=== PATIENT | male | born 1955 | race Caucasian/White ===

== ENCOUNTER 2019-08-28 10:27 | Emergency (ER) | payer MEDICARE, SELFPAY | END 2019-08-28 12:50 | disposition home or self-care (01) | PROVIDERS: Emergency Provider Nurse Practitioner Family; Visit Provider Nurse Practitioner Family | DX: K57.33 Diverticulitis of large intestine without perforation or abscess with bleeding (principal); I10 Essential (primary) hypertension; Z79.82 Long term (current) use of aspirin | CPT/HCPCS: 74177; 80053; 81003; 83605; 83690; 85025; 96361; 96374; 96375; 99284; J1885; J2405; Q9967 ==

== ENCOUNTER 2020-07-18 11:24 | Outpatient (CLI) | payer MEDICARE, SELFPAY ==
--- NOTE | 2020-07-18 11:45 | XR_ITS ---
WS: [id number] Exam: XR KUB [id number] Date/Time of Exam: 07/18/2020 11:35 AM Reason For Exam: stones Comparison 10/27/2018. A total of 3 small calcification superimpose the right renal silhouette and may represent renal calcu li. No calcifications are visualized over the left kidney. There are nonspecific bilateral pelvic urszula cifications noted. Organ margins are intact. No bowel obstruction or free air. Postoperative changes seen along the right and left pubis. XR/XR KUB [id number] IMPRESSION: 1. Small calcifications superimposing the right renal silhouette which may repr esent renal calculi. 2. Nonspecific bilateral pelvic calcifications. 3. No acute finding.
== END 2020-07-18 11:25 | disposition home or self-care (01) ==
LOC: RAD 11:30
PROVIDERS: PCP Urology; Visit Provider Urology
DX: N20.0 Calculus of kidney (principal); C61 Malignant neoplasm of prostate; R39.9 Unspecified symptoms and signs involving the genitourinary system
CPT/HCPCS: 74018; 81003; 84153

== ENCOUNTER 2021-07-16 09:16 | Outpatient (CLI) | payer MEDICARE, SELFPAY ==
--- NOTE | 2021-07-16 09:00 | XR_ITS ---
WS: [id number] Exam: XR KUB [id number] Date/Time of Exam: 07/16/2021 9:00 AM Reason For Exam: RENAL CALCULUS Comparison 07/18/2020. No bowel obstruction or free air. Small calcification superimpose both renal silhouettes and are like ly renal stones. No sign of organ enlargement. Regional bony elements are intact. Postoperative grande es seen in the region of the pubic symphysis. XR/XR KUB [id number] IMPRESSION: 1. Small calcification superimpose both kidneys and are probably renal calculi. 2. Nonspecific bilateral pelvic calcifications. 3. No acute abdominal finding.
== END 2021-07-16 09:17 | disposition home or self-care (01) ==
PROVIDERS: PCP Nurse Practitioner Family; Visit Provider Urology
DX: N20.0 Calculus of kidney (principal)
CPT/HCPCS: 74018; 81003; G0103

== ENCOUNTER 2021-08-13 18:49 | Emergency (ER) | payer MEDICARE, SELFPAY ==
[2021-08-13 18:58] VITALS: BP 124/77; PULSE 67; RESP 18; TEMP 36.6; O2SAT 91; BMI 28.1
--- NOTE | 2021-08-13 19:14 | CTR_ITS ---
PROCEDURE INFORMATION: Exam: CT Abdomen And Pelvis With Contrast Exam date and time: 08/13/2021 7:14 PM Age: 66 years old Clinical indication: Nausea; Abdominal pain; Localized; Right lower quadrant (rlq); Prior surgery; Surgery type: Hernia, ureteral stents; Additional info: Flank pain TECHNIQUE: Imaging protocol: Computed tomography of the abdomen and pelvis with contrast. Radiation optimization: All CT scans at this facility use at least one of these dose optimization techniques: automated exposure control; mA and/or kV adjustment per patient size (includes targeted exams where dose is matched to clinical indication); or iterative reconstruction. Contrast material: VISI 320; Contrast volume: 95 ml; Contrast route: INTRAVENOUS (IV); COMPARISON: CT abdomen pelvis w con* [id number] 08/28/2019 11:39 AM RADIATION DOSE METRICS: Total DLP (mGy-cm): 1624.78 FINDINGS: Lungs: Bibasilar atelectasis versus infiltrate. Liver: Hepatic cysts. Gallbladder and bile ducts: Normal. No calcified stones. No ductal dilation. Pancreas: Normal. No ductal dilation. Spleen: Normal. No splenomegaly. Adrenal glands: Normal. No mass. Kidneys and ureters: Right mid ureter 5.1 mm calculus with moderate hydronephrosis and hydroureter along with some perinephric edema perhaps reflecting associated pyelonephritis. Bilateral renal cysts, negative for follow-up advised. Several bilateral punctate nonobstructing renal calyceal stones. Stomach and bowel: Diverticulosis without diverticulitis. Appendix: No evidence of appendicitis. Intraperitoneal space: Unremarkable. No free air. No significant fluid collection. Vasculature: Unremarkable. No abdominal aortic aneurysm. Lymph nodes: Unremarkable. No enlarged lymph nodes. Urinary bladder: Unremarkable as visualized. Reproductive: Unremarkable as visualized. Bones/joints: Unremarkable. No acute fracture. Soft tissues: Right inguinal hernia containing omentum without bowel. CT/CT abdomen pelvis w con* [id number] IMPRESSION: 1. Right mid ureter 5.1 mm calculus with moderate hydronephrosis and hydroureter along with some perinephric edema perhaps reflecting associated pyelonephritis. 2. Diverticulosis without diverticulitis. 3. Right inguinal hernia containing omentum without bowel. 4. Bibasilar atelectasis versus infiltrate. 5. Hepatic cysts. 6. Bilateral renal cysts, negative for follow-up advised. 7. Several bilateral punctate nonobstructing renal calyceal stones.
[2021-08-13 19:31] LABS: Glucose Urine UA Norm (Normal); Ketones Urine 1+ (Negative); Protein Urine 2+ (Negative); Specific Gravity, Urine 1.025 (1.005-1.030); Urine Appearance Cloudy (CLEAR); Urine Color Red (Yellow); pH Urine 6.5 (5-7)
[2021-08-13 19:32] LABS: Bilirubin Urine 1+ (Negative); Blood Urine 3+ (Negative); Nitrate Urine Negative (Negative); Urobilinogen Urine 4 mg/dL (Negative)
[2021-08-13 19:33] LABS: Add Urine Microscopic? YES; Bacteria Urine 2+ /hpf; Leukocyte Esterase Urine 1+ (Negative); Mucus Urine TRACE /hpf; RBC Urine TOO NUMEROUS TO CNT /hpf (0-2); Squamous Epithelial Cell Urine 0-4 /hpf (0-5)
[2021-08-13 19:34] LABS: Add Urine Culture? Yes
[2021-08-13] MEDS: acetaminophen 500 mg Tablet PO (19:35)
--- NOTE | 2021-08-13 19:37 | W.ED.GENADLT ---
HPI - General Adult General: Chief complaint: Abdominal Pain Stated complaint: possible Kidney stone Time Seen by Provider: 08/13/21 19:14 History of Present Illness: HPI narrative: Patient is a 66-year-old male with history of hypertension, bilateral inguinal hernia, recurrent kidney stones, prostate cancer presenting to the emergency room with complaints of acute onset 6/10 right-sided flank pain x1 hour patient says that the pain is very similar to prior history of kidney stones. Patient has intermittent colicky-like pain. Denies any fever/chills, nausea/vomiting, urinary symptoms, hematuria or polyuria. Patient has problems stooling. Pain is not worse with p.o. intake. Patient denies any diarrhea, melena hematochezia. No associated chest pain, shortness breath, palpitation, lightheadedness at this time Onset: 1 hr ago Duration:1 hr Location:home Severity:moderate Review of Systems Narrative: Constitutional: No fever, no chills. HEENT: No vision changes CV: No chest pain, no palpitations PULM: no cough, no dyspnea. GI: No abdominal pain, no N/V/D. +R sided flank pain : No dysuria MSKEL: No muscle pain SKIN: No new rashes, no lesions. NEURO: No headache, no focal weakness. HEME: No visible bruises PSYCH: Normal mood PFSH ED PFSH: Medical History (Updated 08/13/21 @ 22:20 by Bianca Rao MD) Erectile dysfunction Lower urinary tract symptoms (LUTS) Prostate cancer Renal calculus Surgical History (Updated 07/24/21 @ 12:57 by Les Gilmore MD) H/O hernia repair S/P extracorporeal shock wave therapy S/P ureteral stent placement Family History Mother , at age 90 No problems noted. Father , in his 60's MVA (motor vehicle accident) Brother Cancer prostate cancer 2 brothers Social History Smoking and tobacco status: former smoker Alcohol intake: current Alcohol intake frequency: holidays/special occasions only Marital status: Current occupational status: disabled Physical Exam Narrative: EXAM NARRATIVE: Head: Atraumatic Eyes: PERRL, conjunctiva without injection ENT: Mucous membrane moist NECK: Supple, ROM intact LUNGS: LCTAB, no crackles/rhonchi CV: RRR ABDOMEN: Soft, +moderate R flank TTP. NO guarding rebound, guarding, rigidity. No CVA tenderness to percussion. Neg Segal/Neg McBurney's point tenderness, no suprabupic tenderness to palpation. EXTREMITY: Normal ROM SKIN: No rash or erythema NEURO: Awake and alert, no focal motor deficits PSYCH: Normal mood and affect Course Vital Signs: Vital signs: Vital Signs Temperature 97.9 F 08/13/21 18:58 Pulse Rate 67 08/13/21 18:58 Respiratory Rate 24 H 08/13/21 20:14 Blood Pressure 124/77 08/13/21 18:58 Pulse Oximetry 95 08/13/21 20:14 MDM - General Adult MDM Narrative: Medical decision making narrative: 66-year-old male with history of recurrent kidney stones presenting to the emergency room with sudden onset right flank/lower quadrant pain x1 hour. On exam, patient has moderate tenderness palpation the right lower quadrant. Patient is afebrile. No guarding no rebound tenderness White count of 9.2. UA is consistent with UTI. Patient does appear to have 2+ bacteria and 5-10 WBCs per high-power field and 2+ leukocyte esterase. CT abdomen pelvis showed right-sided kidney stone with hydroureter. Patient has a 5.1 mm stone with moderate hydronephrosis. There appears to be perinephric edema noted. Have discussed finding with Dr. Gilmore at 10:15 PM. Given the fact that patients develop acute pain, is afebrile, has no white count, creatinine within normal limit, this is unlikely to be acute infected stone. To be safe, have given patient first dose of ceftriaxone in the emergency room. Patient is aware that he has an appoint with Dr. Gilmore tomorrow morning. I have given patient Dr. Gilmore's clinic's address and phone number. He received morphine, Toradol, Dilaudid with improvement in pain symptoms. Rx cefdinir BID x 5 days, perococet PRN pain, flomax per request of family. Disposition: Discharge. Patient counseled regarding diagnostic impression, treatment plan. Patient given ED strict return precautions to return for continuation, worsening, or development of new symptoms. Instructed to f/u w/ Dr. Gilmore regarding symptoms today. Patient verbalized understanding. Patient is given return precaution for any signs of infection including fever/chills, worsening flank pain, dehydration, inability tolerate p.o., or any new concerning complaints. Lab Data: Labs: Lab Results 08/13/21 08/13/21 08/13/21 19:03 19:35 19:35 WBC 9.2 10^3/uL 10^3/ uL (4.0-10.0) RBC 4.71 10^6/uL 10^6 /uL (4.1-5.3) Hgb 15.3 g/dL g/dL (11.7-16.6) Hct 45.5 % % (42.0-52.0) MCV 96.6 fl H fl (80-94) MCH 32.5 pg pg (28.0-34.0) MCHC 33.6 g/dL g/dL (30.0-36.0) RDW 12.9 % % (12.1-15.1) Plt Count 225 10^3/cmm 10^3 /cmm (130-400) MPV 10.5 fL H fL (7.4-10.4) Neut % (Auto) 68.6 % % Lymph % (Auto) 22.7 % % [place] % (Auto) 6.2 % % Eos % (Auto) 1.9 % % Baso % (Auto) 0.4 % % Neut # (Auto) 6.30 10^3/uL 10^3 /uL (1.8-7.7) Lymph # (Auto) 2.1 10^3/uL 10^3/ uL (0.8-4.8) [place] # (Auto) 0.6 10^3/uL 10^3/ uL (0.2-0.9) Eos # (Auto) 0.2 10^3/uL 10^3/ uL (0.0-0.8) Baso # (Auto) 0.0 10^3/uL 10^3/ uL (0.0-0.1) Nucleated RBC % (a uto) 0 % % Nucleated RBCs # 0.0 /100WBC /100W BC Sodium 141 mmol/L mmol/L (136-145) Potassium 3.8 mmol/L mmol/L (3.5-5.1) Chloride 105 mmol/L mmol/L (98-107) Carbon Dioxide 20 mmol/L L mmol/ L (22-29) Anion Gap 19.8 H (5-19) BUN 13 mg/dL mg/dL (8-23) Creatinine 1.1 mg/dL mg/dL (0.7-1.2) GFR Calculation 67.0 mL/min L mL/ min (90-130) Glucose 110 mg/dL mg/dL (65-115) Calculated Osmolal ity 293 mOsm/kg mOsm/ kg (285-295) Calcium 8.2 mg/dL L mg/dL (8.5-10.5) Total Bilirubin 0.3 mg/dL mg/dL (0.15-1.2) AST 24 U/L U/L (0-40) ALT 19 U/L U/L (0-41) Alkaline Phosphata se 69 IU/L IU/L (40-130) Total Protein 6.1 g/dL L g/dL (6.6-8.7) Albumin 4.1 g/dL g/dL (3.5-5.2) Globulin 2.0 g/dL g/dL (1.3-4.6) Lipase 27 U/L U/L (13-60) Urine Color Red (Yellow) Urine Appearance Cloudy (CLEAR) Urine pH 6.5 (5-7) Ur Specific Gravit y 1.025 (1.005-1.030) Urine Protein 2+ H (Negative) Urine Glucose (UA) Norm (Normal) Urine Ketones 1+ H (Negative) Urine Blood 3+ H (Negative) Urine Nitrate Negative (Negative) Urine Bilirubin 1+ H (Negative) Urine Urobilinogen 4 mg/dL H mg/dL (Negative) Ur Leukocyte Yesika ase 1+ H (Negative) Urine RBC Too numerous to c nt /hpf H /hpf (0-2) Urine WBC 5-10 /hpf H /hpf (0-5) Ur Squamous Epith Cells 0-4 /hpf H /hpf (0-5) Amorphous Sediment Not Reportable Urine Bacteria 2+ /hpf H /hpf (NONE) Urine Mucus Trace /hpf /hpf Urine Yeast 2+ /hpf H /hpf Imaging Data^: Other Imaging: Radiologist's impression: [id number] [id number] Scan ReportSigned Patient: Asim Muse #: [id number]: 5Acct#:[id number]/Sex: 66 / MADM Date: 08/13/21Loc: ERRoom/Bed:Attending Dr: Ordering Provider/Ordering MD: Bianca Rao MD Date of Service: 08/13/21 Procedure(s): CT abdomen pelvis w con* [id number] Accession Number(s): [id number] Report Number: [id number] PROCEDURE INFORMATION: Exam: CT Abdomen And Pelvis With Contrast Exam date and time: 08/13/2021 7:14 PM Age: 66 years old Clinical indication: Nausea; Abdominal pain; Localized; Right lower quadrant (rlq); Prior surgery; Surgery type: Hernia, ureteral stents; Additional info: Flank pain TECHNIQUE: Imaging protocol: Computed tomography of the abdomen and pelvis with contrast. Radiation optimization: All CT scans at this facility use at least one of these dose optimization techniques: automated exposure control; mA and/or kV adjustment per patient size (includes targeted exams where dose is matched to clinical indication); or iterative reconstruction. Contrast material: VISI 320; Contrast volume: 95 ml; Contrast route: INTRAVENOUS (IV); COMPARISON: CT abdomen pelvis w con* [id number] 08/28/2019 11:39 AM RADIATION DOSE METRICS: Total DLP (mGy-cm): 1624.78 FINDINGS: Lungs: Bibasilar atelectasis versus infiltrate. Liver: Hepatic cysts. Gallbladder and bile ducts: Normal. No calcified stones. No ductal dilation. Pancreas: Normal. No ductal dilation. Spleen: Normal. No splenomegaly. Adrenal glands: Normal. No mass. Kidneys and ureters: Right mid ureter 5.1 mm calculus with moderate hydronephrosis and hydroureter along with some perinephric edema perhaps reflecting associated pyelonephritis. Bilateral renal cysts, negative for follow-up advised. Several bilateral punctate nonobstructing renal calyceal stones. Stomach and bowel: Diverticulosis without diverticulitis. Appendix: No evidence of appendicitis. Intraperitoneal space: Unremarkable. No free air. No significant fluid collection. Vasculature: Unremarkable. No abdominal aortic aneurysm. Lymph nodes: Unremarkable. No enlarged lymph nodes. Urinary bladder: Unremarkable as visualized. Reproductive: Unremarkable as visualized. Bones/joints: Unremarkable. No acute fracture. Soft tissues: Right inguinal hernia containing omentum without bowel. CT/CT abdomen pelvis w con* [id number] IMPRESSION: 1. Right mid ureter 5.1 mm calculus with moderate hydronephrosis and hydroureter along with some perinephric edema perhaps reflecting associated pyelonephritis. 2. Diverticulosis without diverticulitis. 3. Right inguinal hernia containing omentum without bowel. 4. Bibasilar atelectasis versus infiltrate. 5. Hepatic cysts. 6. Bilateral renal cysts, negative for follow-up advised. 7. Several bilateral punctate nonobstructing renal calyceal stones. Dictated By:Calvin Miller MDSigned By:Calvin Miller MDSigned Date/Time:08/13/212206DD/ 13 Discharge Plan Discharge Patient Disposition: Home Clinical Impression: Acute flank pain, Renal colic Condition: Stable Prescriptions: New Percocet 5-325 mg tablet 1 tab PO Q8H PRN (Reason: pain) Qty: 10 RF: 0 cefdinir 300 mg capsule 300 mg PO BID 5 Days Qty: 10 RF: 0 Flomax 0.4 mg capsule 0.4 mg PO Q24H Qty: 10 RF: 0 No Action tamsulosin [Flomax] 0.4 mg capsule 0.4 mg PO DAILY RF: 0 losartan [Cozaar] 50 mg tablet 50 mg PO DAILY RF: 0 lovastatin 10 mg tablet 10 mg PO DAILY RF: 0 aspirin [Adult Aspirin Regimen] 81 mg tablet,delayed release (DR/EC) 81 mg PO DAILY RF: 0 Discharge Orders: Discharge ED (Routine); Ordered 08/13/21 Ordered By: Bianca Rao Referrals: Salina Shea FNP [Primary Care Provider] - Discharge Diet: Advance as tolerated Discharge Activity: Resume usual activity Patient Instructions: Renal Colic (ED), Abdominal Pain (ED), Flank Pain (ED), Opioid Safety (ED) Activity Restrictions/Additional Instructions: Please come back if you have any worsening abdominal pain, fever or chills, nausea or vomiting, diarrhea, worsening flank pain, blood in the stool, inability hold down liquid or solids, or any new concerning complaints. Please call Dr. Gilmore's office tomorrow morning for follow-up with your kidney stone at [address] [facility] [address] ? Take antibiotics as instructed. Please come back to the emergency room you have any fever or chills, worsening pain, nausea/vomiting or any new or concerning complaints. Watch out for signs of skin changes/redness, mouth redeness or swelling, nausea/vomiting, diarrhea, blood in the urine when you are taking your antibiotics. Coding Level of Care Code ED Bulk Plant Manager for Alicja Glass
[2021-08-13] MEDS: sodium chloride 0.9% 500 ML 999 ML IV (19:40)
[2021-08-13] MEDS: sodium chloride 0.9% 1,000 ML 999 ML IV (19:40)
[2021-08-13 19:56] VITALS: RESP 22; O2SAT 94
[2021-08-13] MEDS: morphine 4 mg/mL SDV 1 mL 2 MG IVP (19:56)
[2021-08-13 20:14] VITALS: RESP 24; O2SAT 95
[2021-08-13] MEDS: HYDROmorphone 1 mg/mL INJ 1 mL 0.5 MG IVP (20:14)
[2021-08-13 20:29] LABS: Basophils % 0.4 %; Eosinophils # 0.2 10^3/uL (0.0-0.8); Eosinophils % 1.9 %; Hematocrit 45.5 % (42.0-52.0); Hemoglobin 15.3 g/dL (11.7-16.6); Lymphocytes # 2.1 10^3/uL (0.8-4.8); Lymphocytes % 22.7 %; Mean Corpuscular HGB Conc 33.6 g/dL (30.0-36.0); Mean Corpuscular Hemoglobin 32.5 pg (28.0-34.0); Mean Corpuscular Volume 96.6 fl (80-94); Mean Platelet Volume 10.5 fL (7.4-10.4); Monocytes # 0.6 10^3/uL (0.2-0.9); Monocytes % 6.2 %; Neutrophils % 68.6 %; Nucleated Red Blood Cells % 0 %; Platelet Count 225 10^3/cmm (130-400); Red Blood Count 4.71 10^6/uL (4.1-5.3); Red Cell Distribution Width 12.9 % (12.1-15.1); White Blood Count 9.2 10^3/uL (4.0-10.0)
[2021-08-13 20:47] LABS: Alanine Aminotransferase 19 U/L (0-41); Albumin Level 4.1 g/dL (3.5-5.2); Alkaline Phosphatase 69 IU/L (40-130); Anion Gap 19.8 (5-19); Aspartate Amino Transferase 24 U/L (0-40); Blood Urea Nitrogen 13 mg/dL (8-23); Calcium 8.2 mg/dL (8.5-10.5); Carbon Dioxide 20 mmol/L (22-29); Chloride 105 mmol/L (98-107); Glucose 110 mg/dL (65-115); Lipase 27 U/L (13-60); Osmolality Calculated 293 mOsm/kg (285-295); Potassium 3.8 mmol/L (3.5-5.1); Sodium 141 mmol/L (136-145); Total Bilirubin 0.3 mg/dL (0.15-1.2); Total Protein 6.1 g/dL (6.6-8.7)
[2021-08-13] MEDS: iodixanol 320 mg/mL 100mL Btl IV (20:55)
[2021-08-13] MEDS: ketorolac 30 mg/mL INJ IVP (21:26)
[2021-08-13] MEDS: cefTRIAXone 1,000 MG in sodium chloride 0.9% (plus) 50 ML 100 MG IV (21:26)
[2021-08-13 22:03] VITALS: BP 127/72; RESP 20; O2SAT 93
[2021-08-13 22:42] VITALS: BP 127/72; O2SAT 93
--- NOTE | 2021-08-15 12:56 | DCPLANNER ---
manager beverage had message to refer patient to see Dr. Gilmore on 08.14.21 - an appointment had been scheduled for patient for 08.14.21 - patient did attend appointment.
== END 2021-08-13 22:30 | disposition home or self-care (01) ==
PROVIDERS: Nurse Practitioner Family; Emergency Provider Emergency Medicine; PCP Nurse Practitioner Family
DX: N23 Unspecified renal colic (principal); Z79.82 Long term (current) use of aspirin; Z85.46 Personal history of malignant neoplasm of prostate; Z87.442 Personal history of urinary calculi; Z87.891 Personal history of nicotine dependence
CPT/HCPCS: 74177; 80053; 81001; 83690; 85025; 87086; 96361; 96365; 96375; 99284; J0696; J1170; J1885; J2270; J7030; J7040; Q9967

== ENCOUNTER 2021-08-14 12:44 | Outpatient (CLI) | payer MEDICARE, SELFPAY ==
--- NOTE | 2021-08-14 12:49 | XRR_ITS ---
PROCEDURE INFORMATION: Exam: XR Abdomen Exam date and time: 08/14/2021 12:49 PM Age: 66 years old Clinical indication: Right lower quadrant abdominal pain. Prior hernia surgery. Stones. TECHNIQUE: Imaging protocol: XR of the abdomen. Views: Frontal supine view of the abdomen. 1 View. COMPARISON: CT abdomen pelvis w con* [id number] 08/13/2021 8:54 PM FINDINGS: Gastrointestinal tract: Nonobstructive bowel gas pattern. Intraperitoneal space: No gross free air. Organs: Nonobstructive renal stones are noted bilaterally. An obstructive stone identified in the mid right ureter on the prior CT from yesterday is likely situated superior to the right transverse process of L5. This stone measures 5.8 mm. Probable fiducial markers in the prostate. There is excreted contrast in the bladder. Bones/joints: No gross acute fracture. XR/XR KUB [id number] IMPRESSION: Nonobstructive renal stones are noted bilaterally. An obstructive stone identified in the mid right ureter on the prior CT from yesterday is likely situated superior to the right transverse process of L5. This stone measures 5.8 mm.
== END 2021-08-14 12:45 | disposition home or self-care (01) ==
LOC: RAD 12:47
PROVIDERS: PCP Urology; Visit Provider Urology
DX: N23 Unspecified renal colic (principal); N20.0 Calculus of kidney
CPT/HCPCS: 74018; 81003

== ENCOUNTER 2021-08-20 13:03 | Outpatient (CLI) | payer MEDICARE, SELFPAY ==
--- NOTE | 2021-08-20 13:11 | XR_ITS ---
WS: [email or web address] Exam: XR KUB [id number] Date/Time of Exam: 08/20/2021 1:13 PM Reason For Exam: RIGHT URETERAL CALCULUS Comparison 08/14/2021. 3 mm calcification superimposes the left kidney and may represent a renal stone. No bowel obstruction or free air. Nonspecific pelvic calcifications. Fiducial markers in the region of the prostate gland . Bony structures are otherwise intact. XR/XR KUB [id number] IMPRESSION: 1. 3 mm calcification superimposing the lower pole left kidney probably represe nting a renal stone. 2. No acute abdominal process.
== END 2021-08-20 13:04 | disposition home or self-care (01) ==
LOC: RAD 13:06
PROVIDERS: PCP Urology; Visit Provider Urology
DX: N20.1 Calculus of ureter (principal)
CPT/HCPCS: 74018; 81003

== ENCOUNTER 2021-08-27 08:45 | Outpatient (CLI) | payer MEDICARE, SELFPAY ==
--- NOTE | 2021-08-27 09:00 | XR_ITS ---
WS: [email or web address] KUB, AP view, 08/27/2021 Clinical Data: STONES Comparison: KUB, 08/20/2021 Findings: No abnormal intraabdominal masses are seen. There is no dilatated small bowel or evidence of obstruct ion. There is a small calcification overlying the left kidney but the left kidney is obscured by overlying fecal material and colon gas. There are radiopaque markers adjacent to the prostate gland. XR/XR KUB [id number] Impression: No change in calcification overlying left kidney.
== END 2021-08-27 08:46 | disposition home or self-care (01) ==
LOC: RAD 08:52
PROVIDERS: PCP Urology; Visit Provider Urology
DX: R10.9 Unspecified abdominal pain (principal); N20.0 Calculus of kidney
CPT/HCPCS: 74018; 81003

== ENCOUNTER 2021-09-06 09:06 | Outpatient (CLI) | payer MEDICARE, SELFPAY ==
--- NOTE | 2021-09-06 09:00 | XR_ITS ---
WS: [email or web address] KUB, AP view, 09/06/2021 Clinical Data: RENAL CALCULUS Comparison: None. Findings: No abnormal intraabdominal masses are seen. There is no dilatated small bowel or evidence of obstruct ion. There may be small calcifications overlying the left kidney. The right kidney is partially obscured b y fecal material and colon gas. There are phleboliths in the true pelvis. There are metal implants in the region of the prostate gland. XR/XR KUB [id number] Impression: Possible left renal calculi.
== END 2021-09-06 09:07 | disposition home or self-care (01) ==
LOC: RAD 09:08
PROVIDERS: PCP Nurse Practitioner Family; Visit Provider Urology
DX: N20.0 Calculus of kidney (principal)
CPT/HCPCS: 74018; 81003

== ENCOUNTER 2021-09-17 11:39 | Outpatient (CLI) | payer MEDICARE, SELFPAY ==
--- NOTE | 2021-09-17 11:44 | XR_ITS ---
WS: [email or web address] Exam: XR KUB [id number] Date/Time of Exam: 09/17/2021 11:44 AM Reason For Exam: RENAL CALCULUS Comparison 09/06/2021. Small calcification superimpose both renal silhouettes and may represent renal stones. Multiple bilat eral pelvic calcifications are nonspecific. No bowel obstruction or free air. Organ margins are unrem arkable in appearance. Bony structures are intact. XR/XR KUB [id number] IMPRESSION: 1. Small calcification superimpose both renal silhouettes and may represent yoli al calculi. 2. No acute abdominal finding.
== END 2021-09-17 11:40 | disposition home or self-care (01) ==
LOC: RAD 11:42
PROVIDERS: PCP Nurse Practitioner Family; Visit Provider Urology
DX: N20.0 Calculus of kidney (principal); N20.1 Calculus of ureter
CPT/HCPCS: 74018; 81003

== ENCOUNTER 2021-09-20 08:00 | Outpatient (CLI) | payer MEDICARE, SELFPAY ==
--- NOTE | 2021-09-20 08:11 | XR_ITS ---
WS: [email or web address] Exam: XR KUB [id number] Date/Time of Exam: 09/20/2021 8:22 AM Reason For Exam: RENAL CALCULUS Comparison 09/17/2021. No bowel obstruction or free air. Small calcifications superimpose both kidneys suggesting renal ston es. Nonspecific bilateral pelvic calcifications are seen. No sign of organ enlargement. Regional bony elements are unremarkable. XR/XR KUB [id number] IMPRESSION: 1. No acute abdominal process. 2. Small calcifications superimpose both kidneys most likely representing renal stones. Bilateral nonspecific pelvic calcifications.
== END 2021-09-20 08:01 | disposition home or self-care (01) ==
LOC: RAD 08:02
PROVIDERS: PCP Nurse Practitioner Family; Visit Provider Urology
DX: N20.0 Calculus of kidney (principal)
CPT/HCPCS: 74018; 81003

== ENCOUNTER 2021-10-04 08:48 | Outpatient (CLI) | payer MEDICARE, SELFPAY ==
--- NOTE | 2021-10-04 08:58 | XR_ITS ---
WS: [email or web address] XR KUB [id number] REASON FOR EXAM: STONES FINDINGS: Cluster of 3 sub-2 mm calculi seen overlying the lower right kidney. 3 mm calculus overlying the lowe r left kidney. No change compared to 09/20/2021. No ureteral or bladder calculi identified. XR/XR KUB [id number] IMPRESSION: Bilateral intrarenal calculi with no change.
== END 2021-10-04 08:49 | disposition home or self-care (01) ==
PROVIDERS: PCP Nurse Practitioner Family; Visit Provider Urology
DX: N20.1 Calculus of ureter (principal); N20.0 Calculus of kidney
CPT/HCPCS: 74018; 81003

== ENCOUNTER → 2022-05-19 11:21 | Outpatient (BNVA) | payer MEDICARE, SELFPAY | PROVIDERS: PCP Nurse Practitioner Family; Visit Provider Podiatrist Foot & Ankle Surgery | DX: M72.2 Plantar fascial fibromatosis (principal); L60.3 Nail dystrophy | CPT/HCPCS: 73630; 99204 ==

== ENCOUNTER → 2022-06-19 09:58 | Outpatient (BNVA) | payer MEDICARE, SELFPAY | PROVIDERS: PCP Nurse Practitioner Family; Visit Provider Podiatrist Foot & Ankle Surgery | DX: M72.2 Plantar fascial fibromatosis (principal); L60.3 Nail dystrophy | CPT/HCPCS: 11750 ==

== ENCOUNTER → 2022-07-03 11:41 | Outpatient (BNVA) | payer MEDICARE, SELFPAY | PROVIDERS: PCP Nurse Practitioner Family; Visit Provider Podiatrist Foot & Ankle Surgery | DX: L60.8 Other nail disorders (principal); Z98.890 Other specified postprocedural states | CPT/HCPCS: 99213 ==

== ENCOUNTER 2022-07-17 13:56 | Outpatient (CLI) | payer MEDICARE, SELFPAY ==
--- NOTE | 2022-07-17 14:12 | XR_ITS ---
WS: [email or web address] Exam: XR KUB [id number] Date/Time of Exam: 07/17/2022 2:12 PM Reason For Exam: Renal Calculus Comparison 10/04/2021. Tiny calcification superimpose both renal silhouettes and apparently represent known renal stones. No bowel obstruction or free air. No sign of organ enlargement. Bony structures are intact. Postoperati ve changes noted across the pubic symphysis. XR/XR KUB [id number] IMPRESSION: 1. No acute abdominal process. 2. Tiny calcification superimpose both kidneys and apparently represent known r enal stones.
[2022-07-17 14:53] LABS: Prostate Specific AG Urology 0.62 ng/mL (0-4)
== END 2022-07-17 13:57 | disposition home or self-care (01) ==
LOC: LAB 13:58
PROVIDERS: PCP Nurse Practitioner Family; Visit Provider Urology
DX: N20.2 Calculus of kidney with calculus of ureter (principal); C61 Malignant neoplasm of prostate; N52.9 Male erectile dysfunction, unspecified
CPT/HCPCS: 36415; 74018; 81003; 84153; 99213

== ENCOUNTER → 2022-08-07 10:52 | Outpatient (BNVA) | payer MEDICARE, SELFPAY | PROVIDERS: PCP Nurse Practitioner Family; Visit Provider Podiatrist Foot & Ankle Surgery | DX: L60.0 Ingrowing nail (principal); L60.8 Other nail disorders; Z98.890 Other specified postprocedural states | CPT/HCPCS: 11750 ==

== ENCOUNTER 2022-09-05 11:12 | Emergency (ER) | payer MEDICARE, SELFPAY ==
[2022-09-05] VITALS (15 sets, daily range): BP systolic 137–145; BP diastolic 91–94; PULSE 53–64; RESP 13–23; TEMP 36.9; O2SAT 89–95; BMI 27.6
--- NOTE | 2022-09-05 11:52 | ECG_ITS ---
[facility] Test Date: 2022-09-05 Pat Name: Asim Muse Department: Room: Gender: Male Supervisor Post Wave: : 1955 Requested By: Rohit James Order Number: [id number] Devika MD: Priscila Ferguson M.D. Measurements Intervals Luther Rate: 65 P: 36 OR: 180 QRS: -50 QRSD: 85 T: 31 QT: 390 QTc: 408 Interpretive Statements SINUS RHYTHM LEFT ANTERIOR FASCICULAR BLOCK [QRS AXIS <= -45, QR IN I, RS IN II] Compared to ECG 03/01/2018 12:41:13 Left anterior fascicular block now present Left-axis deviation no longer present Electronically Signed On 09-05-2022 16:50:41 [employer] by Priscila Ferguson M.D. [id number]
--- NOTE | 2022-09-05 12:11 | CTR_ITS ---
PROCEDURE INFORMATION: Exam: CT Abdomen And Pelvis With Contrast Exam date and time: 09/05/2022 1:27 PM Age: 67 years old Clinical indication: Abdominal pain; Localized; Right upper quadrant (ruq); Prior surgery; Surgery type: Hernia; Patient HX: HX of prostate cancer; Additional info: Abd pain TECHNIQUE: Imaging protocol: Computed tomography of the abdomen and pelvis with contrast. Radiation optimization: All CT scans at this facility use at least one of these dose optimization techniques: automated exposure control; mA and/or kV adjustment per patient size (includes targeted exams where dose is matched to clinical indication); or iterative reconstruction. Contrast material: OMNI 350; Contrast volume: 100 ml; Contrast route: INTRAVENOUS (IV); COMPARISON: CT abdomen pelvis w con* [id number] 08/13/2021 8:54 PM RADIATION DOSE METRICS: Total DLP (mGy-cm): 558.23 FINDINGS: Lungs: Unchanged elevation of the left hemidiaphragm with adjacent atelectasis. Heart: Normal heart size. Coronary atherosclerotic calcifications seen. No pericardial effusion. Liver: Unchanged small hepatic cysts. The liver is otherwise unremarkable. Gallbladder and bile ducts: Normal. No calcified stones. No ductal dilation. Pancreas: Normal. No ductal dilation. Spleen: Normal. No splenomegaly. Adrenal glands: Normal. No mass. Kidneys and ureters: Small bilateral renal cysts noted, the largest on the left measuring 1.6 cm. Additional subcentimeter foci of decreased attenuation in both kidneys are too small to characterize. Bilateral nonobstructive kidney stone, the largest on the right measuring 0.4 cm. No hydronephrosis. Stomach and bowel: There is multiple diverticuli in the sigmoid colon, in association with wall thickening and stranding of the pericolic fat, consistent with acute diverticulitis. No evidence of free air or fluid collection to suggest perforation. Appendix: No evidence of appendicitis. Intraperitoneal space: See Stomach and bowel finding. Vasculature: Mild diffuse atherosclerotic disease is present. Lymph nodes: Unremarkable. No enlarged lymph nodes. Urinary bladder: Unremarkable as visualized. Reproductive: Unremarkable as visualized. Bones/joints: Small bone island measuring 0.9 cm noted in the left sacral alae. No fracture or dislocation. Soft tissues: A small fat containing right inguinal hernia is present. CT/CT abdomen pelvis w con* [id number] IMPRESSION: Uncomplicated sigmoid diverticulitis. COMMENTS: Consistent with the [employer]'s Incidental Findings Committee white paper (J Am Angeli Radiol 2018): Any incidental renal lesion less than 1 cm or classified as too small to characterize, or any incidental cystic renal lesion characterized as simple-appearing, is likely benign. No follow-up imaging is recommended for these lesions per consensus recommendations based on imaging criteria.
[2022-09-05 12:38] LABS: Basophils % 0.6 %; Eosinophils # 0.1 10^3/uL (0.0-0.8); Eosinophils % 1.7 %; Hematocrit 49.3 % (42.0-52.0); Hemoglobin 16.2 g/dL (11.7-16.6); Lymphocytes # 1.4 10^3/uL (0.8-4.8); Lymphocytes % 21.8 %; Mean Corpuscular HGB Conc 32.9 g/dL (30.0-36.0); Mean Corpuscular Hemoglobin 31.8 pg (28.0-34.0); Mean Corpuscular Volume 96.7 fl (80-94); Mean Platelet Volume 9.8 fL (7.4-10.4); Monocytes # 0.5 10^3/uL (0.2-0.9); Monocytes % 7.9 %; Neutrophils # 4.38 10^3/uL (1.8-7.7); Neutrophils % 67.5 %; Nucleated Red Blood Cells % 0 %; Platelet Count 223 10^3/cmm (130-400); Red Cell Distribution Width 12.6 % (12.1-15.1); White Blood Count 6.5 10^3/uL (4.0-10.0)
[2022-09-05 13:02] LABS: Alanine Aminotransferase 17 U/L (0-41); Albumin Level 4.3 g/dL (3.5-5.2); Alkaline Phosphatase 66 U/L (40-130); Anion Gap 13.1 (5-19); Aspartate Amino Transferase 18 U/L (0-40); Blood Urea Nitrogen 10 mg/dL (8-23); Calcium 8.7 mg/dL (8.5-10.5); Carbon Dioxide 24 mmol/L (22-29); Chloride 106 mmol/L (98-107); Globulin 2.6 g/dL (1.3-4.6); Glomerular Filtration Rate 96.4 mL/min (90-130); Glucose 78 mg/dL (65-115); Lipase 28 U/L (13-60); Osmolality Calculated 286 mOsm/kg (285-295); Potassium 4.1 mmol/L (3.5-5.1); Sodium 139 mmol/L (136-145); Total Bilirubin 0.5 mg/dL (0.15-1.2); Total Protein 6.9 g/dL (6.6-8.7)
[2022-09-05 13:03] LABS: Lactic Sepsis W/Reflex 0.9 mmol/L (0.5-2.2)
[2022-09-05] MEDS: iohexol 350 mg/mL 500 mL Btl (per mL) IV (13:32)
[2022-09-05 15:05] LABS: Add Urine Microscopic? NO; Bilirubin Urine Neg (Negative); Blood Urine Neg (Negative); Charge for UA Resulting for Rev; Glucose Urine UA Norm (Normal); Ketones Urine Negative (Negative); Leukocyte Esterase Urine Negative (Negative); Nitrate Urine Negative (Negative); Protein Urine Neg (Negative); Sulfosalicylic Acid Urine Negative (Negative); Urine Appearance Clear (CLEAR); Urine Color Straw (Yellow); Urobilinogen Urine Neg (Negative); pH Urine 8 (5-7)
--- NOTE | 2022-09-05 15:25 | ED_ITS ---
HPI - SOB/Dyspnea General: Chief Complaint: Shortness of Breath/Dyspnea Stated Complaint: right side pain Time Seen by Provider: 09/05/22 12:10 Source: patient Mode of arrival: ambulatory History of Present Illness: HPI Narrative: 67-year-old male presents to the emergency room with complaining of right upper quadrant pain. Radiates into his back started 2 to 3 days ago little bit of shortness of breath with it. No chest pain. No fever sweats or chills. Patient has previously had a cholecystectomy. Pain reproducible with palpation. MD elicited complaint: shortness of breath and cough Onset (ago): day(s) (2-3) Timing: progressively worsening Severity: moderate Exacerbating factors: nothing Relieving factors: nothing Associated symptoms: Reports abdominal pain; Deny chest congestion, chest pain, cough, diaphoresis, dizziness, extremity pain, fever(s), hemoptysis, lightheadedness, myalgias, nausea, orthopnea, palpitations, paresthesias, polydipsia, polyuria, rash, sense of impending doom, syncope or vomiting Treatment prior to arrival: none Review of Systems Const: Denies: fever(s), chills, fatigue, malaise or diaphoresis ENMT: Denies: throat pain, ear or mastoid pain, nasal discharge or nasal congestion Card: Denies: chest pain, palpitations, lightheadedness, syncope or orthopnea Resp: Denies: dyspnea, productive cough, non-productive cough, hemoptysis or chest congestion GI: Reports: abdominal pain; Denies: nausea or vomiting : Denies: flank pain, dysuria, urinary frequency or urinary urgency Musc: Denies: extremity pain Skin/Breast: Denies: rash or pruritus Neuro: Denies: dizziness Endo: Denies: polyuria or polydipsia PFSH ED PFSH: Medical History Erectile dysfunction Lower urinary tract symptoms (LUTS) Prostate cancer Renal calculus Urolithiasis Surgical History H/O colonoscopy H/O hernia repair S/P extracorporeal shock wave therapy S/P ureteral stent placement Family History Mother , at age 90 No problems noted. Father , in his 60's MVA (motor vehicle accident) Brother Cancer prostate cancer 2 brothers Social History Smoking and tobacco status: never smoked Alcohol intake: current Alcohol intake frequency: holidays/special occasions only Marital status: Current occupational status: disabled History of recent travel: No Physical Exam Const: COMMON NORMALS: no acute distress GENERAL APPEARANCE: cooperative and comfortable ORIENTATION/CONSCIOUSNESS: Yes awake, Yes oriented to person, Yes oriented to place and Yes oriented to time HENMT: COMMON NORMALS: normocephalic, atraumatic and hearing grossly normal bilaterally HEAD & SCALP: normocephalic and atraumatic Resp: COMMON NORMALS: normal respiratory effort, No retractions, No use of accessory muscles and clear to auscultation bilaterally AUSCULTATION: clear to auscultation bilaterally Cardio: COMMON NORMALS: regular rate, regular rhythm and No murmurs present (Cardio) RATE: regular rate RHYTHM: regular rhythm GI: COMMON NORMALS: Soft to palpation and No hepatosplenomegaly present AUSCULTATION: Yes normoactive bowel sounds PALPATION: Yes Soft to palpation, No Tenderness to palpation present (GI), No Guarding due to palpation present (GI) and Yes No hepatosplenomegaly present Extremity: COMMON NORMALS: normal to inspection, capillary refill normal, no clubbing, cyanosis or edema, no calf tenderness and no pedal edema Neuro: SENSORIUM/ORIENTATION: Yes oriented to person, Yes oriented to place and Yes oriented to time Skin: COMMON NORMALS: no rashes or lesions noted GENERAL SKIN EXAM: no rashes or lesions noted Course Vital Signs: Vital signs: Vital Signs Temperature 98.4 F 09/05/22 11:49 Pulse Rate 55 L 09/05/22 15:00 Respiratory Rate 22 H 09/05/22 15:00 Blood Pressure 145/94 09/05/22 15:00 Pulse Oximetry 93 09/05/22 15:00 Oxygen Delivery Me thod 09/05/22 15:00 Oxygen Flow Rate 2 09/05/22 15:00 MDM - SOB/Dyspnea Medical Decision Making Labs and imaging reviewed. Patient is sigmoid diverticulitis per CT. His white count is not significantly elevated, no sign of cholecystitis. Chest x-ray was questionable area of pneumonia. We will start patient on Cipro Floxin and Flagyl should cover pneumonia as well as diverticulitis recheck with primary care if not improving return to the ER if worsens Medical Records I reviewed the patient's medical records. Lab Data I reviewed the patient's lab results. 09/05/22 12:28 09/05/22 12:28 Labs/Radiology: Radiology Impressions Abdomen/Pelvis CT 09/05/22 12:11 IMPRESSION: Uncomplicated sigmoid diverticulitis. COMMENTS: Consistent with the [employer]'s Incidental Findings Committee white paper (J Am Angeli Radiol 2018): Any incidental renal lesion less than 1 cm or classified as too small to characterize, or any incidental cystic renal lesion characterized as simple-appearing, is likely benign. No follow-up imaging is recommended for these lesions per consensus recommendations based on imaging criteria. Chest X-Ray 09/05/22 15:33 IMPRESSION: Nonspecific imaging findings, which can be seen with pulmonary congestion or pneumonia. Clinical correlation is recommended. Laboratory Results WBC 6.5 10^3/uL (4.0-10.0) 09/05/22 12:28 RBC 5.10 10^6/uL (4.1-5.3) 09/05/22 12:28 Hgb 16.2 g/dL (11.7-16.6) 09/05/22 12:28 Hct 49.3 % (42.0-52.0) 09/05/22 12:28 MCV 96.7 fl (80-94) H 09/05/22 12:28 MCH 31.8 pg (28.0-34.0) 09/05/22 12:28 MCHC 32.9 g/dL (30.0-36.0) 09/05/22 12:28 RDW 12.6 % (12.1-15.1) 09/05/22 12:28 Plt Count 223 10^3/cmm (130-400) 09/05/22 12:28 MPV 9.8 fL (7.4-10.4) 09/05/22 12:28 Neut % (Auto) 67.5 % 09/05/22 12:28 Lymph % (Auto) 21.8 % 09/05/22 12:28 [place] % (Auto) 7.9 % 09/05/22 12:28 Eos % (Auto) 1.7 % 09/05/22 12:28 Baso % (Auto) 0.6 % 09/05/22 12:28 Neut # (Auto) 4.38 10^3/uL (1.8-7.7) 09/05/22 12:28 Lymph # (Auto) 1.4 10^3/uL (0.8-4.8) 09/05/22 12:28 [place] # (Auto) 0.5 10^3/uL (0.2-0.9) 09/05/22 12:28 Eos # (Auto) 0.1 10^3/uL (0.0-0.8) 09/05/22 12:28 Baso # (Auto) 0.0 10^3/uL (0.0-0.1) 09/05/22 12: Nucleated RBC % (auto) 0 % 09/05/22 12: Nucleated RBCs # 0.0 /100WBC 09/05/22 12:28 Sodium 139 mmol/L (136-145) 09/05/22 12:28 Potassium 4.1 mmol/L (3.5-5.1) 09/05/22 12:28 Chloride 106 mmol/L (98-107) 09/05/22 12:28 Carbon Dioxide 24 mmol/L (22-29) 09/05/22 12:28 Anion Gap 13.1 (5-19) 09/05/22 12:28 BUN 10 mg/dL (8-23) 09/05/22 12:28 Creatinine 0.8 mg/dL (0.7-1.2) 09/05/22 12:28 GFR Calculation 96.4 mL/min (90-130) 09/05/22 12:28 Glucose 78 mg/dL (65-115) 09/05/22 12:28 Calculated Osmolality 286 mOsm/kg (285-295) 09/05/22 12:28 Lactic Acid 0.9 mmol/L (0.5-2.2) 09/05/22 12:28 Calcium 8.7 mg/dL (8.5-10.5) 09/05/22 12:28 Magnesium 2.0 mg/dL (1.7-2.3) 09/05/22 12:28 Total Bilirubin 0.5 mg/dL (0.15-1.2) 09/05/22 12:28 AST 18 U/L (0-40) 09/05/22 12:28 ALT 17 U/L (0-41) 09/05/22 12:28 Alkaline Phosphatase 66 U/L (40-130) 09/05/22 12:28 Total Protein 6.9 g/dL (6.6-8.7) 09/05/22 12:28 Albumin 4.3 g/dL (3.5-5.2) 09/05/22 12:28 Globulin 2.6 g/dL (1.3-4.6) 09/05/22 12:28 Lipase 28 U/L (13-60) 09/05/22 12:28 Urine Color Straw (Yellow) 09/05/22 14:53 Urine Appearance Clear (CLEAR) 09/05/22 14:53 Urine pH 8 (5-7) H 09/05/22 14:53 Ur Specific [place] 1.010 (1.005-1.030) 09/05/22 14:53 Urine Protein Neg (Negative) 09/05/22 14:53 Urine Glucose (UA) Norm (Normal) 09/05/22 14:53 Urine Ketones Negative (Negative) 09/05/22 14:53 Urine Blood Neg (Negative) 09/05/22 14:53 Urine Nitrate Negative (Negative) 09/05/22 14:53 Urine Bilirubin Neg (Negative) 09/05/22 14:53 Prot Sulfosalicylic Acd Negative (Negative) 09/05/22 14:53 Urine Urobilinogen Neg mg/dL (Negative) 09/05/22 14:53 Ur Leukocyte Esterase Negative (Negative) 09/05/22 14:53 Discharge Plan Discharge Patient Disposition: Home Clinical Impression: Diverticulitis, Pneumonia Condition: Stable Prescriptions: New ciprofloxacin HCl 500 mg tablet 500 mg PO BID Qty: 20 0RF ondansetron HCl 4 mg tablet 4 mg PO Q6H PRN (Reason: nausea and vomiting) Qty: 20 0RF No Action tamsulosin [Flomax] 0.4 mg capsule 0.4 mg PO BEDTIME losartan [Cozaar] 50 mg tablet 50 mg PO QAM lovastatin 10 mg tablet 10 mg PO QAM omeprazole 40 mg capsule,delayed release(DR/EC) 40 mg PO DAILY PRN (Reason: Heartburn) Aspir-81 81 mg Tablet,Delayed Release (Dr/Ec) 81 mg PO QAM Ventolin HFA 90 mcg/actuation Hfa Aerosol Inhaler 2 puff INHALATION QID PRN (Reason: Shortness Of Breath) potassium gluconate 595 mg (99 mg) Tablet 595 - 1,190 mg PO Q7D PRN (Reason: UNKNOWN) Discharge Orders: Discharge ED (Routine); Ordered 09/05/22 Ordered By: Rohit Gonzalez Referrals: Salina Shea FNP [Primary Care Provider] - Patient Instructions: Opioid Safety, Pain Management Activity Restrictions/Additional Instructions: You were seen for abdominal discomfort. No significant findings in the CT in the right upper quadrant of your abdomen. He did have some diverticulitis on the CT of your abdomen chest x-ray showed areas of pneumonia. You will be discharged home on ciprofloxacin and metronidazole. Take both antibiotics until they are gone. Coding Level of Care Code ED Hedis Coordinator for Alicja Glass
--- NOTE | 2022-09-05 15:33 | XRR_ITS ---
PROCEDURE INFORMATION: Exam: XR Chest Exam date and time: 09/05/2022 3:42 PM Age: 67 years old Clinical indication: Patient HX: 67-year-old male presents to the emergency room with complaining of right upper quadrant pain. Radiates into his back started 2 to 3 days ago little bit of shortness of breath with it. No chest pain. ; Additional info: Dyspnea/cough TECHNIQUE: Imaging protocol: Radiologic exam of the chest. Views: 1 view. COMPARISON: CT abdomen pelvis w con* [id number] 09/05/2022 1:27 PM FINDINGS: Lungs: There is mildly increased lung markings, suggestive of pulmonary congestion. Streaky bibasilar atelectasis noted, left greater than right. Pneumonia should be excluded clinically. Pleural spaces: Unremarkable. No pleural effusion. No pneumothorax. Heart/Mediastinum: Mildly enlarged heart. Bones/joints: Unremarkable. XR/XR chest 1V portable [id number] IMPRESSION: Nonspecific imaging findings, which can be seen with pulmonary congestion or pneumonia. Clinical correlation is recommended.
== END 2022-09-05 16:54 | disposition home or self-care (01) ==
PROVIDERS: Emergency Provider Family Medicine; PCP Nurse Practitioner Family
DX: K57.92 Diverticulitis of intestine, part unspecified, without perforation or abscess without bleeding (principal); J18.9 Pneumonia, unspecified organism; Z79.82 Long term (current) use of aspirin; Z85.46 Personal history of malignant neoplasm of prostate
CPT/HCPCS: 71045; 74177; 80053; 81003; 83605; 83690; 83735; 85025; 93005; 99285; Q9967

== ENCOUNTER 2022-10-08 14:49 | Emergency (ER) | payer MEDICARE, SELFPAY ==
[2022-10-08 14:54] VITALS: BP 123/87; PULSE 96; RESP 18; TEMP 36.9; O2SAT 96; BMI 27.3
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
[2022-10-08] MEDS: HYDROcodone-acetaminophen 5-325 mg Tablet 1 TAB PO (17:29)
[2022-10-08 17:31] VITALS: BP 126/87; PULSE 71; RESP 18; O2SAT 98
[2022-10-08 17:32] VITALS: BP 126/87; PULSE 71; RESP 18; O2SAT 98
== END 2022-10-08 17:33 | disposition home or self-care (01) ==
PROVIDERS: Emergency Provider Nurse Practitioner Family; PCP Nurse Practitioner Family
DX: S00.03XA Contusion of scalp, initial encounter (principal); V84.0XXA Driver of special agricultural vehicle injured in traffic accident, initial encounter; M25.552 Pain in left hip
CPT/HCPCS: 70450; 72125; 73502; 99284; L0172